=== PATIENT | female | born 1950 | race Caucasian/White ===

== ENCOUNTER 2016-09-16 12:14 | Emergency (ER) | payer BC ==
--- NOTE | ~2016-09-16 | EKG ---
PATIENT: CURLY GRIFFIN UNIT #: [id number] Ventricular Rate: 93 BPM Atrial Rate: 93 BPM P-R Interval: 164 ms QRS Duration: 92 ms Q-T Interval: 372 ms QTC Calculation(Bezet): 462 ms P [place]: 22 degrees Calculated R [place]: -18 degrees Calculated T [place]: 6 degrees Diagnosis Line: Normal sinus rhythm Diagnosis Line: Low voltage QRS Diagnosis Line: Poor R wave progression questionable lead position Diagnosis Line: or body habitus Diagnosis Line: Borderline ECG Diagnosis Line: No previous ECGs available Diagnosis Line: Confirmed by MAICO SCOTT MD ([id number]) on Diagnosis Line: 09/17/2016 10:57:48 AM INTERPRETING MD: RADHA
--- NOTE | ~2016-09-16 | CR72 ---
[facility] A Service of [facility] RADIOLOGY TEXT RESULTS PATIENT: CURLY GRIFFIN LOCATION: [facility] : 54 UNIT #: [id number] AGE: [address]: Barb Haney MD SEX: F ORDER DR: [id number] [facility] [address] [place], [place] [address] [id number] E MR#: [id number] Acc #: [id number] NAME: CURLY GRIFFIN : 1950 SEX: F STUDY DATE/TIME: 09/16/2016 14:57 UNIT: [facility] ROOM: STUDY DESCRIPTION: CR Chest Single View Portable Attending Physician: Barb Haney M.D. Ordering Physician: Barb Haney M.D. Primary Care Physician: Rupert Gregorio M.D. MEDICAL IMAGING REPORT This report is preliminary unless electronic signature is present EXAM AP radiograph chest 09/16/2016. HISTORY Short of air began today. Short of air. Elevated blood sugar, diabetes, asthma as child, prior breast reduction. FINDINGS AP radiograph of the chest is presented. Comparison 09/06/2010. No acute-appearing bony abnormality. Mild cardiac enlargement new compared to prior study. Lungs moderately well inflated. There is no evidence of acute pulmonary disease. No pleural effusion or pneumothorax. No suspicious nodule. Dictated by... Taras Barry M.D. THIS IS AN ELECTRONICALLY VERIFIED REPORT Taras Barry M.D. at 09/17/2016 12:11 PM TAMIKA/shannan TD: 09/16/2016 23:09 JOB #: [id number] MEDICAL IMAGING REPORT Page 1 of 1 COPY
[~2016-09-16 12:14] MED LIST: ABILIFY20 MG PO; ABILIFY30 MG PO; AVANDARYL 4 MG-1 TA1 PO; CARAFATE PO; CRESTOR10 MG PO; FIBER CHOI1 TAB.CHE1 PO; HYDROCODON-ACE1 EAC5 PO; LOTREL 5/10 MG1 CAP PO; MIRALAX17 GM PO; OXYBUTYNIN10 MG/BOTT PO; PHENTERMINE H37.5 M1 PO; PRILOSEC20 MG PO; SINGULAIR PO; TOFRANIL PO
[2016-09-16 14:48] LABS: URINE SOURCE CLEAN CATCH
[2016-09-16 14:54] LABS: URINE APPEARANCE CLEAR; URINE BILIRUBIN NEG (NEG); URINE BLOOD NEG (NEG); URINE COLOR YELLOW; URINE GLUCOSE >1000 MG/DL (NEG); URINE KETONE NEG (NEG); URINE LEUKOCYTE ESTERASE NEG (NEG); URINE NITRATE NEG (NEG); URINE PROTEIN NEG (NEG); URINE UROBILINOGEN 0.2 MG/DL (NEG)
[2016-09-16 14:56] LABS: CULTURE INDICATED? NO
[2016-09-16 14:56] LABS: BASOPHIL# 0.1 X10e3 (0-0.3); BASOPHIL% 0.9 % (0-2.5); EOSINOPHIL# 0.5 X10e3 (0-0.7); EOSINOPHIL% 4.5 % (0.0-7.0); HEMATOCRIT 42.3 % (35.0-45.0); LYMPHOCYTE# 3.1 X10e3 (1.0-3.5); LYMPHOCYTE% 27.3 % (17.0-45.0); MEAN CELL VOLUME 88.2 FL (83-96); MEAN CORPUSCULAR HEMOGLOBIN 29.2 PG (28-34); MEAN CORPUSCULAR HGB CONC 33.1 g/dL (30-36); MONOCYTE# 0.6 X10e3 (0-1.0); MONOCYTE% 5.1 % (3.0-12.0); NEUTROPHIL% 62.2 % (40-75); PLATELET COUNT 159 X10e3 (140-420); RED CELL DISTRIBUTION WIDTH 12.8 % (11.0-15.5); WHITE BLOOD COUNT 11.2 X10e3 (4.0-10.5)
[2016-09-16 14:58] LABS: DIFF IND NO
[2016-09-16 15:02] LABS: POC - CKMB 1.7 ng/mL (0.0-7.9); POC - TROPONIN <0.05 ng/mL (<=0.05)
[2016-09-16 15:10] LABS: POC - CKMB 1.5 ng/mL (0.0-7.9); POC - TROPONIN <0.05 ng/mL (<=0.05)
[2016-09-16 15:38] LABS: ALBUMIN SERUM 3.9 g/dL (3.5-5.0); BETA HYDROXYBUTYRATE 0.17 MMOL/L (0.02-0.27); BILIRUBIN, DIRECT 0.1 mg/dL (0.0-0.2); BILIRUBIN,INDIRECT 0.5 mg/dL (0.0-0.9); BILIRUBIN,TOTAL 0.6 mg/dL (0.2-2.0); BUN/CREATININE RATIO 19.16; CALCIUM SERUM 9.3 mg/dL (8.4-10.2); CREATININE SERUM 1.2 mg/dL (0.6-1.4); GLOM FILT RATE Estimated 48.1 mL/min (>60); POTASSIUM 3.9 mmol/L (3.5-5.1); PROTEIN TOTAL SERUM 7.6 g/dL (6.0-8.3)
== END 2016-09-16 16:48 | disposition home or self-care (01) ==
LOC: CED 12:14
PROVIDERS: Emergency Medicine
DX: E11.65 Type 2 diabetes mellitus with hyperglycemia (principal); I10 Essential (primary) hypertension; F32.9 Major depressive disorder, single episode, unspecified; Z90.710 Acquired absence of both cervix and uterus
CPT/HCPCS: 36415; 71010; 80048; 80076; 81003; 82010; 82553; 82947; 84484; 85025; 93005; 96360; 96361; 99284